=== PATIENT | female | born 1930 | race Caucasian/White ===

== ENCOUNTER 2018-09-29 11:17 | Inpatient (IN) ==
[2018-09-29] MEDS ORDERED: SODIUM CHLORIDE 0.9% 1,000 ML IV STA (11:46)
[2018-09-29 12:44] LABS: Albumin 3.7 G/DL (3.4-5.0); Bilirubin,Total 0.4 MG/DL (0.2-1.0); Calcium 9.5 MG/DL (8.5-10.1); Osmolality,Calculated 279.7 MOS/KG (273-304); Total Protein 7.4 G/DL (6.4-8.3); Troponin I < 0.015 NG/ML (0.00-0.045)
[2018-09-29 13:12] LABS: Basophils % 0.4 % (0.0-0.8); Eosinophils # 0.1 10*3/uL (0.0-0.87); Hematocrit 39.8 VOL% (35.7-47.0); Hemoglobin 13.1 GM/DL (12.0-16.0); Immature Granulocytes % 0.2 %; Immature Granulocytes Absolute 0.01 #; Lymphocytes # 1.3 10*3/uL (1.4-4.0); Lymphocytes % 25.5 % (21.3-54.2); Mean Corpuscular HGB Conc 32.9 GM/DL (32-36); Mean Corpuscular Volume 86.5 FL (87-102); Mean Platelet Volume 11.6 FL (9.6-12.0); Monocytes % 7.8 % (1.7-12.7); Neutrophils % 65.1 % (38.7-73.9); Platelet Count 102 T/CUMM (130-400); Red Cell Distribution Width 12.7 % (9.3-17.3); White Blood Count 5.1 T/CUMM (4-12)
[2018-09-29 13:40] LABS: PT Patient Result 10.7 SECS; Partial Thromboplastin Time 21.6 SECS (0-40)
[2018-09-29] MEDS ORDERED: ACETAMINOPHEN 325 MG TABLET PO PRN (14:54)
[2018-09-29] MEDS ORDERED: ONDANSETRON 4 MG/2 ML VIAL IV PRN (14:54)
[2018-09-29] MEDS: dilTIAZem Drip 125 MG/125 ML PREMIX IV SCH (15:43)
[2018-09-29] MEDS ORDERED: ENOXAPARIN 40 MG/0.4 ML SYRINGE SUBCUT SCH (16:00)
[2018-09-29] MEDS: DONEPEZIL 10 MG TABLET PO SCH (20:13)
[2018-09-29] MEDS: DOCUSATE SODIUM 100 MG CAPSULE PO SCH (20:13)
[2018-09-29] MEDS: AMITRIPTYLINE 25 MG TABLET PO SCH (20:13)
[2018-09-30 08:34] LABS: Free T4 (Free Thyroxine) 0.89 NG/DL (0.76-1.46); Thyroid Stimulating Hormone 3.51 uIU/ml (0.358-3.74)
[2018-09-30] MEDS ORDERED: METOPROLOL SUCCINATE XL 100 MG TABLET PO SCH (09:00)
[2018-09-30] MEDS: ASPIRIN EC 81 MG TABLET PO SCH (10:14)
[2018-09-30] MEDS: ANASTROZOLE 1 MG TABLET PO SCH (10:14)
[2018-09-30] MEDS: APIXABAN 2.5 MG TABLET PO SCH ×2 (10:15→21:23)
[2018-09-30] MEDS: PANTOPRAZOLE 40 MG TABLET PO SCH (10:15)
[2018-09-30] MEDS: DOCUSATE SODIUM 100 MG CAPSULE PO SCH ×2 (10:15→21:22)
[2018-09-30] MEDS: AMIODARONE 200 MG TABLET PO SCH ×2 (10:15→21:23)
[2018-09-30 15:09] LABS: Apearance,Urine CLEAR (Clear); Bilirubin,Urine Negative (Negative); Blood, Urine Negative (Negative); Glucose,Urine (UA) Negative (Negative); Hyaline Casts,Urine 3 /LPF (0-3); Ketones,Urine Negative (Negative); Mucus,Urine Occasional /LPF (Occasional); Nitrite,Urine Negative (Negative); Protein,Urine Negative; RBC,Urine 1 /HPF (0-4); Squamous Epithelial Cell,Urine Occasional /HPF (0-10); Urine Color Yellow (Yellow); Urine Specific Gravity 1.013 (1.001-1.035); Urine Urobilinogen < 2.0 EU/DL (0.2-1.0); WBC,Urine 9 /HPF (0-6)
[2018-09-30] MEDS: DONEPEZIL 10 MG TABLET PO SCH (21:22)
[2018-09-30] MEDS: AMITRIPTYLINE 25 MG TABLET PO SCH (21:22)
[2018-09-30] MEDS: dilTIAZem Drip 125 MG/125 ML PREMIX IV SCH ×2 (21:24→21:25)
[2018-10-01 05:30] LABS: Basophils % 0.2 % (0.0-0.8); Eosinophils # 0.1 10*3/uL (0.0-0.87); Eosinophils % 2.8 % (0.00-10.9); Hematocrit 39.4 VOL% (35.7-47.0); Hemoglobin 13.3 GM/DL (12.0-16.0); Immature Granulocytes % 0.2 %; Immature Granulocytes Absolute 0.01 #; Lymphocytes # 1.8 10*3/uL (1.4-4.0); Lymphocytes % 41.4 % (21.3-54.2); Mean Corpuscular HGB Conc 33.8 GM/DL (32-36); Mean Corpuscular Volume 84.4 FL (87-102); Mean Platelet Volume 10.7 FL (9.6-12.0); Monocytes % 7.4 % (1.7-12.7); Platelet Count 87 T/CUMM (130-400); Red Blood Count 4.67 MC/CUMM (3.8-5.5); Red Cell Distribution Width 12.8 % (9.3-17.3); White Blood Count 4.3 T/CUMM (4-12)
[2018-10-01 05:58] LABS: Platelet Estimate Decreased
[2018-10-01 06:01] LABS: Albumin 3.2 G/DL (3.4-5.0); Bilirubin,Total 0.4 MG/DL (0.2-1.0); Calcium 8.9 MG/DL (8.5-10.1); Osmolality,Calculated 284.3 MOS/KG (273-304); Total Protein 6.5 G/DL (6.4-8.3)
[2018-10-01] MEDS ORDERED: POTASSIUM CHLORIDE 20 MEQ TABLET PO ONE (07:22)
[2018-10-01] MEDS ORDERED: METOPROLOL SUCCINATE XL 50 MG TABLET PO SCH (07:46)
[2018-10-01 08:19] VITALS: BP 123/61
[2018-10-01] MEDS ORDERED: ASCORBIC ACID 500 MG TABLET PO SCH (09:00)
[2018-10-01] MEDS ORDERED: POTASSIUM CHLORIDE 10 MEQ TABLET PO SCH (09:00)
[2018-10-01] MEDS: ANASTROZOLE 1 MG TABLET PO SCH (09:19)
[2018-10-01] MEDS: DOCUSATE SODIUM 100 MG CAPSULE PO SCH (09:20)
[2018-10-01] MEDS: PANTOPRAZOLE 40 MG TABLET PO SCH (09:20)
[2018-10-01] MEDS: ASPIRIN EC 81 MG TABLET PO SCH (09:20)
[2018-10-01] MEDS: AMIODARONE 200 MG TABLET PO SCH (09:20)
[2018-10-01] MEDS: APIXABAN 2.5 MG TABLET PO SCH (09:21)
== END 2018-10-01 10:39 | disposition home or self-care (01) | DRG 310 ==
LOC: N.ED 11:17 → N.EDINP 13:36 → N.TELEN 14:15
PROVIDERS: ADMIT Family Medicine; ATTEND Family Medicine

== ENCOUNTER 2019-08-31 22:54 | Observation (INO) ==
[2019-08-31] MEDS ORDERED: SODIUM CHLORIDE 0.9% 500 ML IV STA (23:22)
[2019-08-31 23:33] LABS: Basophils % 0.6 % (0.0-0.8); Eosinophils % 0.8 % (0.00-10.9); Hematocrit 40.8 VOL% (35.7-47.0); Hemoglobin 13.5 GM/DL (12.0-16.0); Immature Granulocytes % 0.4 %; Immature Granulocytes Absolute 0.02 #; Lymphocytes # 1.8 10*3/uL (1.4-4.0); Lymphocytes % 34.3 % (21.3-54.2); Mean Corpuscular HGB Conc 33.1 GM/DL (32-36); Mean Platelet Volume 11.8 FL (9.6-12.0); Monocytes % 7.3 % (1.7-12.7); Neutrophils % 56.6 % (38.7-73.9); Platelet Count 215 T/CUMM (130-400); Red Blood Count 4.86 MC/CUMM (3.8-5.5); Red Cell Distribution Width 12.7 % (9.3-17.3); White Blood Count 5.2 T/CUMM (4-12)
[2019-08-31 23:36] LABS: Apearance,Urine CLEAR (Clear); Bacteria,Urine Occasional /HPF (Few); Bilirubin,Urine Negative (Negative); Blood, Urine Negative (Negative); Glucose,Urine (UA) Negative (Negative); Hyaline Casts,Urine 20 /LPF (0-3); Ketones,Urine Negative (Negative); Mucus,Urine Moderate /LPF (Occasional); Nitrite,Urine Negative (Negative); Protein,Urine Negative; RBC,Urine <1 /HPF (0-4); Renal Epithelial Cells,Urine Occasional /HPF (<1); Urine Color Yellow (Yellow); Urine Specific Gravity 1.018 (1.001-1.035); Urine Urobilinogen < 2.0 EU/DL (0.2-1.0); WBC,Urine 1 /HPF (0-6)
[2019-08-31 23:54] LABS: Alanine Aminotransferase 28 U/L (13-56); Alkaline Phosphatase 73 U/L (45-117); Aspartate Amino Transferase 24 U/L (0-37); Bilirubin,Total < 0.39 MG/DL (0.2-1.0); Blood Urea Nitrogen 16 MG/DL (7-18); Calcium 7.9 MG/DL (8.5-10.1); Estimated Glom Filtration Rate 53 ML/MIN; Glucose 134 MG/DL (74-106); Osmolality,Calculated 272.1 MOS/KG (273-304); Total Protein 6.8 G/DL (6.4-8.3)
[2019-08-31 23:58] LABS: INR 1.1; PT Patient Result 11.2 SECS (9.8-11.9); Partial Thromboplastin Time 30.8 SECS (23.9-33.8)
[2019-09-01] MEDS ORDERED: POTASSIUM BICARB EFFERVESCENT 25 MEQ TABLET PO ONE (00:10)
[2019-09-01 00:17] LABS: Barbiturates Screen,Urine Negative (Negative); Benzodiazepines Screen,Urine Negative (Negative); Cannabinoid Screen,Urine Negative (Negative); Opiate Screen,Urine Negative (Negative); Phencyclidine Screen,Urine Negative (Negative)
[2019-09-01 00:19] LABS: Ferritin < 0.5 ng/ml (8-252); Free T4 (Free Thyroxine) 0.93 NG/DL (0.76-1.46); Troponin I < 0.015 NG/ML (0.00-0.045)
[2019-09-01] MEDS ORDERED: ONDANSETRON 4 MG/2 ML VIAL IV PRN (00:49)
[2019-09-01] MEDS ORDERED: SODIUM CHLORIDE 0.9% 1,000 ML IV SCH (01:00)
[2019-09-01 03:53] LABS: Osmolality,Calculated 267.5 MOS/KG (273-304)
[2019-09-01] MEDS ORDERED: OMEPRAZOLE PO SCH (09:00)
[2019-09-01] MEDS ORDERED: QUEtiapine 25 MG TABLET PO SCH (09:00)
[2019-09-01] MEDS: AMIODARONE 200 MG TABLET PO SCH ×2 (09:02→21:40)
[2019-09-01] MEDS: hydroCHLOROthiazide 25 MG TABLET PO SCH (09:02)
[2019-09-01] MEDS: ANASTROZOLE 1 MG TABLET PO SCH (09:02)
[2019-09-01] MEDS: APIXABAN 2.5 MG TABLET PO SCH ×2 (09:03→21:41)
[2019-09-01] MEDS: METOPROLOL SUCCINATE XL 50 MG TABLET PO SCH (09:04)
[2019-09-01] MEDS: POTASSIUM CHLORIDE 10 MEQ TABLET PO SCH ×2 (09:04→21:40)
[2019-09-01] MEDS: ASPIRIN EC 81 MG TABLET PO SCH (09:04)
[2019-09-01] MEDS: PANTOPRAZOLE 40 MG TABLET PO SCH (09:04)
[2019-09-01] MEDS: MAGNESIUM SULF INJ 2 GM in SODIUM CHLORIDE 0.9% 1,000 ML IV SCH (09:06)
[2019-09-01] MEDS ORDERED: TUBERCULIN SKIN TEST 0.1 ML SYRINGE INTRADERM ONE (09:22)
[2019-09-01] MEDS: MEMANTINE 5 MG TABLET PO SCH ×2 (10:33→21:41)
[2019-09-01] MEDS: DONEPEZIL 10 MG TABLET PO SCH (21:40)
[2019-09-01] MEDS: AMITRIPTYLINE 25 MG TABLET PO SCH (21:40)
[2019-09-02] MEDS: MAGNESIUM SULF INJ 2 GM in SODIUM CHLORIDE 0.9% 1,000 ML IV SCH ×2 (03:29→18:31)
[2019-09-02 05:44] LABS: Albumin 2.9 G/DL (3.4-5.0); Bilirubin,Total 0.4 MG/DL (0.2-1.0); Calcium 8.6 MG/DL (8.5-10.1); Osmolality,Calculated 269.2 MOS/KG (273-304); Risk Ratio 3.72; Total Protein 6.7 G/DL (6.4-8.3)
[2019-09-02 05:59] LABS: Basophils % 0.2 % (0.0-0.8); Eosinophils # 0.1 10*3/uL (0.0-0.87); Eosinophils % 1.1 % (0.00-10.9); Hematocrit 36.7 VOL% (35.7-47.0); Hemoglobin 12.5 GM/DL (12.0-16.0); Immature Granulocytes % 0.2 %; Immature Granulocytes Absolute 0.01 #; Lymphocytes # 1.4 10*3/uL (1.4-4.0); Lymphocytes % 31.4 % (21.3-54.2); Mean Corpuscular HGB Conc 34.1 GM/DL (32-36); Mean Corpuscular Volume 81.9 FL (87-102); Mean Platelet Volume 10.2 FL (9.6-12.0); Monocytes % 7.6 % (1.7-12.7); Neutrophils % 59.5 % (38.7-73.9); Platelet Count 162 T/CUMM (130-400); Red Blood Count 4.48 MC/CUMM (3.8-5.5); Red Cell Distribution Width 12.8 % (9.3-17.3); White Blood Count 4.5 T/CUMM (4-12)
[2019-09-02 06:28] LABS: Hypochromasia 1+; Lymphocytes 32 % (20-55); Microcytosis 1+; Platelet Estimate Adequate; Segmented Neutrophils 60 % (50-85); Total Cells Counted 100
[2019-09-02] MEDS: METOPROLOL SUCCINATE XL 50 MG TABLET PO SCH (09:01)
[2019-09-02] MEDS: PANTOPRAZOLE 40 MG TABLET PO SCH (09:01)
[2019-09-02] MEDS: MEMANTINE 5 MG TABLET PO SCH ×2 (09:01→20:09)
[2019-09-02] MEDS: ASPIRIN EC 81 MG TABLET PO SCH (09:01)
[2019-09-02] MEDS: POTASSIUM CHLORIDE 10 MEQ TABLET PO SCH ×2 (09:01→20:09)
[2019-09-02] MEDS: hydroCHLOROthiazide 25 MG TABLET PO SCH (09:01)
[2019-09-02] MEDS: ANASTROZOLE 1 MG TABLET PO SCH (09:01)
[2019-09-02] MEDS: APIXABAN 2.5 MG TABLET PO SCH ×2 (09:01→20:09)
[2019-09-02] MEDS: AMIODARONE 200 MG TABLET PO SCH ×2 (09:01→20:09)
[2019-09-02] MEDS: AMITRIPTYLINE 25 MG TABLET PO SCH (20:09)
[2019-09-02] MEDS: DONEPEZIL 10 MG TABLET PO SCH (20:09)
[2019-09-03] MEDS: MAGNESIUM SULF INJ 2 GM in SODIUM CHLORIDE 0.9% 1,000 ML IV SCH ×2 (06:10→20:57)
[2019-09-03 07:00] LABS: Basophils % 0.5 % (0.0-0.8); Eosinophils # 0.2 10*3/uL (0.0-0.87); Eosinophils % 3.7 % (0.00-10.9); Hematocrit 36.6 VOL% (35.7-47.0); Hemoglobin 12.3 GM/DL (12.0-16.0); Immature Granulocytes % 0.2 %; Immature Granulocytes Absolute 0.01 #; Lymphocytes # 1.5 10*3/uL (1.4-4.0); Lymphocytes % 34.2 % (21.3-54.2); Mean Corpuscular HGB Conc 33.6 GM/DL (32-36); Mean Corpuscular Volume 82.4 FL (87-102); Mean Platelet Volume 10.2 FL (9.6-12.0); Monocytes % 7.7 % (1.7-12.7); Neutrophils % 53.7 % (38.7-73.9); Platelet Count 145 T/CUMM (130-400); Red Blood Count 4.44 MC/CUMM (3.8-5.5); Red Cell Distribution Width 12.9 % (9.3-17.3); White Blood Count 4.3 T/CUMM (4-12)
[2019-09-03 07:39] LABS: Calcium 8.6 MG/DL (8.5-10.1)
[2019-09-03] MEDS: hydroCHLOROthiazide 25 MG TABLET PO SCH (09:36)
[2019-09-03] MEDS: POTASSIUM CHLORIDE 10 MEQ TABLET PO SCH ×2 (09:37→21:01)
[2019-09-03] MEDS: APIXABAN 2.5 MG TABLET PO SCH ×2 (09:37→21:01)
[2019-09-03] MEDS: PANTOPRAZOLE 40 MG TABLET PO SCH (09:37)
[2019-09-03] MEDS: AMIODARONE 200 MG TABLET PO SCH ×2 (09:37→21:01)
[2019-09-03] MEDS: METOPROLOL SUCCINATE XL 50 MG TABLET PO SCH (09:37)
[2019-09-03] MEDS: ASPIRIN EC 81 MG TABLET PO SCH (09:37)
[2019-09-03] MEDS: ANASTROZOLE 1 MG TABLET PO SCH (09:37)
[2019-09-03] MEDS: MEMANTINE 5 MG TABLET PO SCH ×2 (09:37→21:01)
[2019-09-03] MEDS: AMITRIPTYLINE 25 MG TABLET PO SCH (21:01)
[2019-09-03] MEDS: DONEPEZIL 10 MG TABLET PO SCH (21:01)
[2019-09-04] MEDS: MEMANTINE 5 MG TABLET PO SCH ×2 (10:04→21:37)
[2019-09-04] MEDS: hydroCHLOROthiazide 25 MG TABLET PO SCH (10:04)
[2019-09-04] MEDS: POTASSIUM CHLORIDE 10 MEQ TABLET PO SCH ×2 (10:04→21:36)
[2019-09-04] MEDS: APIXABAN 2.5 MG TABLET PO SCH ×2 (10:05→21:37)
[2019-09-04] MEDS: ASPIRIN EC 81 MG TABLET PO SCH (10:05)
[2019-09-04] MEDS: AMIODARONE 200 MG TABLET PO SCH ×2 (10:05→21:37)
[2019-09-04] MEDS: ANASTROZOLE 1 MG TABLET PO SCH (10:05)
[2019-09-04] MEDS: METOPROLOL SUCCINATE XL 50 MG TABLET PO SCH (10:05)
[2019-09-04] MEDS: PANTOPRAZOLE 40 MG TABLET PO SCH (10:05)
[2019-09-04] MEDS: MAGNESIUM SULF INJ 2 GM in SODIUM CHLORIDE 0.9% 1,000 ML IV SCH ×2 (14:45→16:57)
[2019-09-04] MEDS: AMITRIPTYLINE 25 MG TABLET PO SCH (21:36)
[2019-09-04] MEDS: DONEPEZIL 10 MG TABLET PO SCH (21:37)
[2019-09-05] MEDS: MAGNESIUM SULF INJ 2 GM in SODIUM CHLORIDE 0.9% 1,000 ML IV SCH ×2 (04:10→19:13)
[2019-09-05] MEDS: AMIODARONE 200 MG TABLET PO SCH ×2 (09:19→20:02)
[2019-09-05] MEDS: PANTOPRAZOLE 40 MG TABLET PO SCH (09:19)
[2019-09-05] MEDS: ANASTROZOLE 1 MG TABLET PO SCH (09:19)
[2019-09-05] MEDS: APIXABAN 2.5 MG TABLET PO SCH ×2 (09:19→20:02)
[2019-09-05] MEDS: hydroCHLOROthiazide 25 MG TABLET PO SCH (09:19)
[2019-09-05] MEDS: POTASSIUM CHLORIDE 10 MEQ TABLET PO SCH ×2 (09:19→20:02)
[2019-09-05] MEDS: METOPROLOL SUCCINATE XL 50 MG TABLET PO SCH (09:19)
[2019-09-05] MEDS: ASPIRIN EC 81 MG TABLET PO SCH (09:19)
[2019-09-05] MEDS: MEMANTINE 5 MG TABLET PO SCH ×2 (09:19→20:03)
[2019-09-05] MEDS: DONEPEZIL 10 MG TABLET PO SCH (20:02)
[2019-09-05] MEDS: AMITRIPTYLINE 25 MG TABLET PO SCH (20:03)
[2019-09-06 05:10] LABS: Basophils % 0.5 % (0.0-0.8); Eosinophils # 0.1 10*3/uL (0.0-0.87); Eosinophils % 3.3 % (0.00-10.9); Hematocrit 39.6 VOL% (35.7-47.0); Hemoglobin 13.3 GM/DL (12.0-16.0); Immature Granulocytes % 0.2 %; Immature Granulocytes Absolute 0.01 #; Lymphocytes # 1.5 10*3/uL (1.4-4.0); Lymphocytes % 35.3 % (21.3-54.2); Mean Corpuscular HGB Conc 33.6 GM/DL (32-36); Mean Corpuscular Volume 82.3 FL (87-102); Mean Platelet Volume 11.1 FL (9.6-12.0); Monocytes % 6.8 % (1.7-12.7); Neutrophils % 53.9 % (38.7-73.9); Platelet Count 58 T/CUMM (130-400); Red Blood Count 4.81 MC/CUMM (3.8-5.5); Red Cell Distribution Width 12.9 % (9.3-17.3); White Blood Count 4.3 T/CUMM (4-12)
[2019-09-06 05:38] LABS: Atypical Lymphocytes Few; Eosinophils 1 % (0-10); Lymphocytes 28 % (20-55); Segmented Neutrophils 62 % (50-85); Total Cells Counted 100
[2019-09-06 05:39] LABS: Hypochromasia 1+; Microcytosis 1+
[2019-09-06 05:39] LABS: Calcium 8.9 MG/DL (8.5-10.1); Osmolality,Calculated 263.5 MOS/KG (273-304)
[2019-09-06] MEDS: MAGNESIUM SULF INJ 2 GM in SODIUM CHLORIDE 0.9% 1,000 ML IV SCH (09:10)
[2019-09-06] MEDS: hydroCHLOROthiazide 25 MG TABLET PO SCH (09:11)
[2019-09-06] MEDS: APIXABAN 2.5 MG TABLET PO SCH (09:12)
[2019-09-06] MEDS: METOPROLOL SUCCINATE XL 50 MG TABLET PO SCH (09:12)
[2019-09-06] MEDS: ASPIRIN EC 81 MG TABLET PO SCH (09:12)
[2019-09-06] MEDS: MEMANTINE 5 MG TABLET PO SCH (09:12)
[2019-09-06] MEDS: PANTOPRAZOLE 40 MG TABLET PO SCH (09:12)
[2019-09-06] MEDS: POTASSIUM CHLORIDE 10 MEQ TABLET PO SCH (09:12)
[2019-09-06] MEDS: AMIODARONE 200 MG TABLET PO SCH (09:12)
[2019-09-06] MEDS: ANASTROZOLE 1 MG TABLET PO SCH (09:12)
[2019-09-06 11:23] VITALS: BP 123/44
== END 2019-09-06 13:27 | disposition home or self-care (01) ==
LOC: EDUNIT# → EDBD → N.EDINP 22:54 → N.ED 22:54 → N.EDINP 09-01 01:42 → N.3E 09-01 02:14
PROVIDERS: ADMIT Family Medicine; ATTEND Family Medicine